=== PATIENT | female | born 1945 | race Caucasian/White ===

== ENCOUNTER 2023-03-31 13:29 | Outpatient (CLI) | payer MEDICARE, SELFPAY ==
--- NOTE | 2023-03-31 14:31 | ECG_ITS ---
Measurements Intervals [place] Rate: 65 P: 41 [place]: 149 QRS: 87 QRSD: 104 T: 74 QT: 420 QTc: 438 Interpretive Statements SINUS RHYTHM BORDERLINE T WAVE ABNORMALITY- ANTERIOR LEADS BASELINE ARTIFACT- I, III, AVR, AVL, AVF, V4-V6 BORDERLINE ECG NO PREVIOUS ECG AVAILABLE FOR COMPARISON Electronically Signed On 03-31-2023 14:47:47 CDT by Elijah Rasheed D.O.
[2023-03-31 14:59] LABS: Basophils Absolute Auto 0.1 K/mm3 (0.0-0.1); Eosinophils Absolute Auto 0.4 K/mm3 (0-0.3); Eosinophils Percent Auto 3.7 % (0-4.4); Hematocrit 39.7 % (37.0-47.0); Hemoglobin 12.6 g/dL (12.0-15.0); Immature Granulocyte Absolute 0.03 K/mm3 (0.00-0.031); Immature Granulocyte Percent A 0.3 % (0-0.5); Lymphocytes Absolute Auto 2.15 K/mm3 (0.9-3.2); Lymphocytes Percent Auto 19.2 % (18.3-44.2); Mean Corpuscular HGB Conc 31.7 g/dl (32-36); Mean Corpuscular Hemoglobin 26.6 pg (26-34); Mean Corpuscular Volume 83.9 fl (80-100); Mean Platelet Volume 10.6 fl (7.4-10.4); Monocytes Absolute Auto 0.9 K/mm3 (0.1-0.6); Neutrophils Absolute Auto 7.6 K/mm3 (1.3-6.7); Neutrophils Percent Auto 67.8 % (45.5-73.1); Platelet Count Result 247 k/mm3 (150-375); Red Blood Count 4.73 M/mm3 (4.2-5.4); Red Cell Distribution Width 16.7 % (11.5-14.5); White Blood Count 11.2 K/mm3 (4.5-10.0)
[2023-03-31 15:08] LABS: Anion Gap 7 mmol/L (8-16); Blood Urea Nitrogen 19 mg/dL (7-17); Calcium 8.9 mg/dL (8.4-10.2); Carbon Dioxide 30 mmol/L (22-30); Chloride 102 mmol/L (98-107); Estimated Glomerular Filt Rate > 60; Glucose 113 mg/dL (65-110); Potassium 3.5 mmol/L (3.4-5.0); Sodium 139 mmol/L (137-145)
== END 2023-03-31 13:30 | disposition home or self-care (01) ==
PROVIDERS: Anesthesiology; PCP Family Medicine; Visit Provider Orthopaedic Surgery
DX: M17.11 Unilateral primary osteoarthritis, right knee (principal); Z01.818 Encounter for other preprocedural examination; I10 Essential (primary) hypertension; Z79.899 Other long term (current) drug therapy; R94.31 Abnormal electrocardiogram [ECG] [EKG]
CPT/HCPCS: 36415; 80048; 85025; 87081; 93005

== ENCOUNTER 2023-04-29 00:28 | Day surgery (SDC) | payer MEDICARE, SELFPAY ==
--- NOTE | 2023-03-31 13:29 | PC.NURSE ---
PRE-OP INSTRUCTIONS, PLEASE READ CAREFULLY Report to the Outpatient Waiting Room, entrance under the green pavilion located off [facility], at time _0600_ on date _04/29/23_. Planned Procedure Time: _0730_. PACK A SMALL OVERNIGHT BAG AND LEAVE IN THE CAR ALONG WITH YOUR WALKER Time changes happen often and if your time is changed the preop area will call you the afternoon before. - You and your visitor will be asked to self-screen and do not enter if you have any COVID symptoms. - A mask is optional within the hospital at this time. -VISITING HOURS 8AM-8PM Patients may have clear liquids (water, carbonated beverages, clear teas, apple juice) until 3 hours prior to surgery (0430 AM) with a maximum of 20 ounces. - No food from midnight until time of surgery Take the following medications with a SIP of water the morning of surgery: _AMLODIPINE, BREZTRI INHALER_ DO NOT STOP ANY OF YOUR OTHER PRESCRIPTION MEDICATIONS PRIOR TO SURGERY ?EXCEPT THE FOLLOWING Medications to discontinue per physician __NONE__, Date to take last dose Please no make-up, nail [place], hairspray, perfume, deodorant, or body powder the day of surgery. No jewelry (including any body piercings) or valuables the day of surgery, leave them at home. Please take a shower or bath the night before, or the morning of, surgery with an antibacterial soap. Wear comfortable, loose fitting clothing. - Jewelry must be removed prior to entering the operating room. Rings and piercings that are not removed may be cut off. - The hospital will not accept responsibility for valuables. - Please leave all valuables, including medications, at home the day of surgery. If you are going home after surgery, a licensed vacuum truck driver must drive you home. - NO public transportation without another adult if you receive anesthesia. - We recommend that an adult stay with you for 24 hours following discharge. - We also recommend that you do not drive, make important decision, drink alcoholic beverages, or take any drugs that were not prescribed by your health care provider for at least 24 hours after your discharge time. Follow any additional instructions given to you from your surgeon. TOTAL JOINT CLASS 04/14/23 @ [address] [place] [address] ENTRANCE #2 If you or anyone in your household have experienced Covid symptoms in the past week, please notify your surgeon or the nurse liaison at the phone number below for possible testing. Instructions given to _PATIENT_and asked if any additional questions and then verbalized understanding. Patient advised to call surgeon office or pre surgery nurse liaison [phone] if any additional questions.
[2023-03-31 14:04] VITALS: BP 130/58; PULSE 76; RESP 18; TEMP 37.1; O2SAT 96; BMI 27.1
--- NOTE | 2023-04-27 14:22 | WPDANESEPPF ---
Anes - Initial Pre Proc Eval Procedure: Operation Date: 04/29/23 07:30 Proposed Procedures p Right Unicompartmental Knee Arthroplasty - Marco Jimenez MD Date/Time: 04/27/23 14:22 Surgeon: Marco Jimenez MD Pre Op Diagnosis: Arthritis Rt Knee Patient Data Age: 77 Gender: F Height: 1.59 m Weight: 69.1 kg Last Vital Signs Temp 98.8 F 03/31/23 14:04 Pulse 76 03/31/23 14:04 Resp 18 03/31/23 14:04 BP 130/58 L 03/31/23 14:04 Pulse Ox 96 03/31/23 14:04 O2 Del Method Room Air 03/31/23 14:04 Allergies Allergy/AdvReac Type Severity Reaction Status Date / Time adhesive tape Allergy Unknown SKIN TEARS Verified 04/23/23 11:35 Home Medications Medication Instructions Recorded Confirmed Type amlodipine 5 mg tablet 5 mg PO DAILY 08/21/22 04/23/23 History cholecalciferol (vitamin D3) 25 25 mcg PO DAILY 08/21/22 04/23/23 History mcg (1,000 unit) capsule hydrochlorothiazide 12.5 mg tablet 12.5 mg PO DAILY 08/21/22 04/23/23 History budesonide 160 mcg-glycopyr 9 2 inh inhalation BID 03/03/23 04/23/23 History mcg-formot 4.8 mcg/actuation HFA inhaler (Breztri Aerosphere) cyanocobalamin (vitamin B-12) 500 mcg PO DAILY 03/03/23 04/23/23 History 1,000 mcg capsule Results Review: All pre-operative results and documents have been reviewed as part of the pre-operative evaluation. [facility] Past Medical History Medical History Abnormal MRI, lumbar spine Anemia B12 deficiency COPD (chronic obstructive pulmonary disease) Emphysema/COPD Herpes zoster without complications Hyperglycemia Hypertension Low back pain with sciatica Lung nodule Renal cyst Renal mass Spinal stenosis Type 2 diabetes mellitus Surgical History Surgical History History of back surgery (~12/2016) History of carpal tunnel release of both wrists History of hysterectomy History of tooth extraction Family History Family History Mother Hypertension Cerebrovascular accident Father Heart attack Seizure Sibling Rheumatoid arthritis Social History Social History Smoking packs per day: 2 Smoking cigarettes per day: 40.0 Years smoked: 60 Smoking pack-years: 120.00 Smoking status: Former smoker Tobacco type: cigarettes Second hand tobacco smoke exposure: No Smoking end date: 05/23/97 Additional smoking assessment comments: PT DENIES ALL FORMS OF TOBACCO USE Alcohol intake: current Drinks per week: 7 Alcohol use details: Socially Substance use: never Substance use type: does not use Lack of Transportation: No Lack of Food: Never True Current Housing: I Have Housing Concerned About Future Housing: No Difficulty Paying Gas/Electric Bills: No Difficulty Paying for Meds: No Education: High School Diploma/GED Difficulty w/ Childcare or Family Care: No Living arrangements: with family Additional living arrangements comments: LIVES WITH SON MACI Spiritual care concerns: No Anes - Eval Final PreProcedure Day of Procedure 04/27/23 14:22 Results Review: All pre-operative results and documents have been reviewed as part of the pre-operative evaluation. Informed Consent: The patient's anesthetic plan and its attendant risks and benefits were discussed with the patient/family/POA. Questions were solicited and answers provided to the satisfaction of the patient/family/POA.
[2023-04-29] VITALS (10 sets, daily range): BP systolic 89–170; BP diastolic 49–67; PULSE 55–76; RESP 10–18; TEMP 36.6–36.7; O2SAT 93–98
--- NOTE | ~2023-04-29 | XR_ITS ---
EXAMINATION: KNEE ONE/TWO VIEW-RIGHT DATE: 04/29/2023 10:03 INDICATION: Postoperative evaluation following right knee medial unicompartmental arthroplasty TECHNIQUE: Anteroposterior and lateral views of the right knee were obtained. COMPARISON: None. FINDINGS: Right knee medial unicompartmental arthroplasty appears well seated and in near anatomic alignment. No fractures identified. Expected postoperative subcutaneous and intra-articular gas. IMPRESSION: 1. Right knee medial unicompartmental arthroplasty, negative for postoperative purposes. Reviewed, dictated and finalized at location A.
[2023-04-29] MEDS: ACETAMINOPHEN 500 MG TABLET 1000 MG PO (06:45)
[2023-04-29] MEDS: LACTATED RINGERS 1,000 ML 30 ML IV CONT ×2 (06:55→09:40)
[2023-04-29] MEDS: TRANEXAMIC ACID 1,000MG/ISO100 1,000 MG/100 ML BAG 200 MG IVPB (07:00)
[2023-04-29 07:16] LABS: Glucose Point of Care 108 mg/dl (65-105)
--- NOTE | 2023-04-29 07:18 | WPDANESEPPF ---
Anes - Initial Pre Proc Eval Procedure: Operation Date: 04/29/23 07:30 Proposed Procedures p Right Unicompartmental Knee Arthroplasty - Marco Jimenez MD Date/Time: 04/29/23 07:18 Surgeon: Marco Jimenez MD Pre Op Diagnosis: Arthritis Rt Knee Patient Data Age: 77 Gender: F Height: 1.59 m Weight: 68 kg Last Vital Signs Temp 36.6 C 04/29/23 07:06 Pulse 76 04/29/23 07:06 Resp 16 04/29/23 07:06 BP 170/59 H 04/29/23 07:06 Pulse Ox 98 04/29/23 07:06 O2 Del Method Room Air 04/29/23 07:06 Allergies Allergy/AdvReac Type Severity Reaction Status Date / Time adhesive tape Allergy Unknown SKIN TEARS Verified 04/29/23 06:27 Home Medications Medication Instructions Recorded Confirmed Type amlodipine 5 mg tablet 5 mg PO DAILY 08/21/22 04/29/23 History cholecalciferol (vitamin D3) 25 25 mcg PO DAILY 08/21/22 04/29/23 History mcg (1,000 unit) capsule budesonide 160 mcg-glycopyr 9 2 inh inhalation BID 03/03/23 04/29/23 History mcg-formot 4.8 mcg/actuation HFA inhaler (Breztri Aerosphere) cyanocobalamin (vitamin B-12) 500 mcg PO DAILY 03/03/23 04/29/23 History 1,000 mcg capsule Laboratory Tests 04/29/23 07:14 POC Capillary Glucose 108 H mg/dl (65-105) Patient hx anesthesia problems: none Family hx anesthesia problems: none Results Review: All pre-operative results and documents have been reviewed as part of the pre-operative evaluation. [facility] Past Medical History Medical History Abnormal MRI, lumbar spine Anemia B12 deficiency COPD (chronic obstructive pulmonary disease) Emphysema/COPD Herpes zoster without complications Hyperglycemia Hypertension Low back pain with sciatica Lung nodule Renal cyst Renal mass Spinal stenosis Type 2 diabetes mellitus Surgical History Surgical History History of back surgery (~12/2016) History of carpal tunnel release of both wrists History of hysterectomy History of tooth extraction Family History Family History Mother Hypertension Cerebrovascular accident Father Heart attack Seizure Sibling Rheumatoid arthritis Social History Social History Smoking packs per day: 2 Smoking cigarettes per day: 40.0 Years smoked: 60 Smoking pack-years: 120.00 Smoking status: Former smoker Tobacco type: cigarettes Second hand tobacco smoke exposure: No Smoking end date: 05/23/97 Additional smoking assessment comments: PT DENIES ALL FORMS OF TOBACCO USE Alcohol intake: current Drinks per week: 7 Alcohol use details: Socially Substance use: never Substance use type: does not use Lack of Transportation: No Lack of Food: Never True Current Housing: I Have Housing Concerned About Future Housing: No Difficulty Paying Gas/Electric Bills: No Difficulty Paying for Meds: No Education: High School Diploma/GED Difficulty w/ Childcare or Family Care: No Living arrangements: with family Additional living arrangements comments: LIVES WITH SON MCAI Spiritual care concerns: No Anes - Eval Final PreProcedure Day of Procedure 04/29/23 07:18 Patient weight: overweight Heart: regular rate and rhythm Lungs: wheezes Airway: Mallampati scale class II Neurological: alert and oriented Last oral intake: >/= 8 hours ASA classification: III Emergent: no Anesthetic plan: proceed Anesthesia type and monitoring: general LMA and standard monitoring Results Review: All pre-operative results and documents have been reviewed as part of the pre-operative evaluation. Informed Consent: The patient's anesthetic plan and its attendant risks and benefits were discussed with the patient/family/POA. Questions were solicited and answers provided to the satisfaction of the
--- NOTE | 2023-04-29 07:22 | WPDHPUPDATE1 ---
History and Physical Update Update Date/Time: 04/29/23 07:22 History and Physical has been reviewed, including an updated exam of the patient. There are NO changes in the patient's condition. Risks, benefits, and alternatives have been discussed and questions answered. Patient agrees to proceed with procedure.
[2023-04-29] MEDS: ceFAZolin 2 GM/D5W 50 ML 2 GM/50 ML BAG IVPB (07:32)
--- NOTE | 2023-04-29 07:41 | WPDANESPNB ---
Anes - Peripheral Nerve Block Date/Time: 04/29/23 07:41 I have discussed with the patient/family/POA the placement of a peripheral nerve block for post-operative pain management, including associated risks, benefits, complications, and side effects. Alternative methods of post-operative analgesia were detailed. Questions were solicited and answers provided to the satisfaction of the patient/family/POA. Time-Out: A pre-procedural Time-Out was completed immediately before starting the procedure and confirmed: Patient Identification, Site, Procedure, Patient Position and the Availability of Requisite Equipment. Clinical Indications: Acute post-operative pain management requested by the operative surgeon. Nerve Block Insertion Note Anes-nerve block: femoral left Patient position: supine Skin prep: chlorhexidine Needle: 22 gauge, stimulating, insulated echogenic needle. Needle length: 50 mm Technique: nerve stimulation lost at (mA) (0.35) Injectate: bupivacaine 0.5% with epi 5 mcg/ml (20cc no epi) Observations: tolerated well Complications: none Procedure start time:: 724 Procedure end time:: 728
[2023-04-29] MEDS: GENTAMICIN BONE CEMENT REFOBACIN 1 EACH TOPICAL (08:44)
--- NOTE | 2023-04-29 09:27 | W.PM.PROC2 ---
Procedure Note - Detailed Date of Procedure 04/29/23 Pre-op Diagnosis Degenerative arthritis left knee. Post-op Diagnosis Same Procedure Performed Partial knee arthroplasty, left knee, medial compartment. Surgeon Marco Jimenez MD Anesthesia General Findings Good bone quality. Minus two femoral resection. Description of Procedure The patient was given a general anesthetic. Preoperative antibiotics were given. The knee was prepped and draped in the usual sterile fashion. A longitudinal incision was created along the medial aspect of the patellar tendon. A minimally invasive optimized mid vastus approach was completed. No medial release was taken. The external alignment guide was used to cut the tibia with anatomic posterior slope. A 4 millimeter resection was taken. The spacer block technique was utilized to measure flexion and extension gaps after the osteophytes were removed. The difference was used to calculate the distal resection. The distal cutting block was utilized to cut the distal femur. The AP and chamfer block was utilized for this last cuts. The femur and tibia were sized. Range of motion and gap balancing was assessed. This was tested with the 1.5 millimeter spacer. The bony surfaces were cleaned with lavaged. Lug holes were drilled. The real components were cemented into position. Excess cement was carefully removed. The tourniquet was released. Meticulous hemostasis was maintained. The wound was closed with interrupted 1 Vicryl suture followed by a running 0 Quill suture and 2-0 Quill suture. Steri-Strips are placed in the skin the patient was extubated and brought to recovery room in stable condition. There were no complications. Implants Localize Direct PKR system femur size 2, tibia size 3, 8mm polyethylene insert . One batch Simplex antibiotic cement. Estimated Blood Loss 20 Drains No Complications No immediate complications Condition Stable Disposition PACU [facility] Billing Surgery - Charge Forward: Surgery Billing
[2023-04-29 10:06] LABS: Glucose Point of Care 153 mg/dl (65-105)
--- NOTE | 2023-04-29 10:12 | SUR.PHASEI ---
Spoke with Dr. Jimenez regarding patient's need for therapy before discharge. Dr. Jimenez will enter therapy orders for patient.
[2023-04-29] MEDS: IBUPROFEN 600 MG TABLET PO (11:24)
--- NOTE | 2023-04-29 11:58 | SUR.PHASEII ---
PT HERE TO WORK WITH PATIENT.
--- NOTE | 2023-04-29 14:01 | SUR.PHASEII ---
[facility] [facility] PHYSICAL THERAPIST CALLED TO REPORT PATIENT'S LEFT KNEE BUCKLED; DR. BROWN NOTIFIED WHO ORDERED A KNEE IMMOBLIZER WHICH WAS PLACED ON LEFT KNEE.
== END 2023-04-29 13:30 | disposition home or self-care (01) ==
PROVIDERS: PCP Family Medicine; Visit Provider Orthopaedic Surgery
PROC: (CPT 27446; principal; 2023-04-29 07:30)
DX: M17.12 Unilateral primary osteoarthritis, left knee (principal); G89.18 Other acute postprocedural pain; I10 Essential (primary) hypertension; E11.9 Type 2 diabetes mellitus without complications; J43.9 Emphysema, unspecified; E53.8 Deficiency of other specified B group vitamins; Z87.891 Personal history of nicotine dependence
CPT/HCPCS: 27446; 64447; 36415; 73560; 80048; 82948; 85025; 87081; 93005; 97110; 97161; 97165; 97530; A9270; C1713; C1776; J0171; J0690; J1100; J1170; J1885; J2270; J2405; J2704; J2795; J7120

== ENCOUNTER 2023-06-17 14:29 | Outpatient (CLI) | payer MEDICARE, SELFPAY ==
--- NOTE | ~2023-06-17 | XR_ITS ---
EXAM: XR knee LT 3V DATE: 06/17/2023 14:44 HISTORY: Z96.652 - Presence of left artificial knee joint, F/U . COMPARISON: 03/03/2023, images only. FINDINGS: Uncomplicated appearing medial compartment hemiarthroplasty. Decreased mineralization. No fracture or dislocation. No lytic or blastic lesion. Mild degenerative change in the patellofemoral a nd lateral compartments. Quadriceps enthesopathy. Large volume joint fluid. No erosion or periosteal change. Soft tissues within normal limits. IMPRESSION: No acute osseous finding. No radiographic evidence of hardware-related complication. Larg e joint effusion. Reviewed, dictated and finalized at location K. IMPRESSION: No acute osseous finding. No radiographic evidence of hardware-rela karlee complication. Large joint effusion.
== END 2023-06-17 14:30 | disposition home or self-care (01) ==
PROVIDERS: PCP Family Medicine; Visit Provider Orthopaedic Surgery
DX: Z96.652 Presence of left artificial knee joint (principal); M25.462 Effusion, left knee
CPT/HCPCS: 73562

== ENCOUNTER 2023-07-06 12:20 | Outpatient (CLI) | payer MEDICARE, SELFPAY ==
[2023-07-06 13:05] LABS: Basophils Absolute Auto 0.1 K/mm3 (0.0-0.1); Basophils Percent Auto 0.9 % (0.2-1.2); Eosinophils Absolute Auto 0.6 K/mm3 (0-0.3); Eosinophils Percent Auto 6.2 % (0-4.4); Hematocrit 40.1 % (37.0-47.0); Hemoglobin 12.7 g/dL (12.0-15.0); Immature Granulocyte Absolute 0.02 K/mm3 (0.00-0.031); Immature Granulocyte Percent A 0.2 % (0-0.5); Lymphocytes Absolute Auto 1.88 K/mm3 (0.9-3.2); Lymphocytes Percent Auto 19.8 % (18.3-44.2); Mean Corpuscular HGB Conc 31.7 g/dl (32-36); Mean Corpuscular Hemoglobin 27.4 pg (26-34); Mean Corpuscular Volume 86.6 fl (80-100); Mean Platelet Volume 10.4 fl (7.4-10.4); Monocytes Percent Auto 10.1 % (2.6-8.5); Neutrophils Percent Auto 62.8 % (45.5-73.1); Platelet Count Result 248 k/mm3 (150-375); Red Blood Count 4.63 M/mm3 (4.2-5.4); Red Cell Distribution Width 14.7 % (11.5-14.5); White Blood Count 9.5 K/mm3 (4.5-10.0)
== END 2023-07-06 12:21 | disposition home or self-care (01) ==
LOC: ANHSURGERY 12:24
PROVIDERS: PCP Family Medicine; Visit Provider Orthopaedic Surgery
DX: Z01.818 Encounter for other preprocedural examination (principal); M17.11 Unilateral primary osteoarthritis, right knee
CPT/HCPCS: 36415; 85025

== ENCOUNTER 2023-07-09 03:43 | Day surgery (SDC) | payer MEDICARE, SELFPAY ==
[2023-07-01 10:05] VITALS: BMI 27.3
--- NOTE | 2023-07-01 10:26 | PC.NURSE ---
Addendum entered by Radha Tolentino RN 07/05/23 10:50: PT CALLED TO UPDATE MED LIST, MED LIST UPDATED AND PT INFORMED TO TAKE AMLODIPINE AM OF SURGERY - UNDERSTANDING VOICED Original Note: Report to the Outpatient Waiting Room, entrance under the green pavilion located off [facility], at time __10:00AM on date __07/09/23 . Planned Procedure Time: _12:00PM . Time changes happen often and if your time is changed the preop area will call you the afternoon before. - You and your visitor will be asked to self-screen and do not enter if you have any COVID symptoms. - A mask is optional within the hospital at this time. Patients may have clear liquids (water, carbonated beverages, clear teas, apple juice) until 3 hours prior to surgery with a maximum of 20 ounces. - No food from midnight until time of surgery Take the following medications with a SIP of water the morning of surgery: _ADVAIR DISKUS, ALBUTEROL INHALER NEEDED DO NOT STOP ANY OF YOUR OTHER PRESCRIPTION MEDICATIONS PRIOR TO SURGERY ?EXCEPT THE FOLLOWING Medications to discontinue per physician ___HOLD ALL VITAMINS/SUPPLEMENTS 3 DAYS PRE-OP PER ANESTHESIA Date to take last dose 07/05/23 Please no make-up, nail afghan, hairspray, perfume, deodorant, or body powder the day of surgery. No jewelry (including any body piercings) or valuables the day of surgery, leave them at home. Please take a shower or bath the night before, or the morning of, surgery with an antibacterial soap. Wear comfortable, loose fitting clothing. - Jewelry must be removed prior to entering the operating room. Rings and piercings that are not removed may be cut off. - The hospital will not accept responsibility for valuables. - Please leave all valuables, including medications, at home the day of surgery. If you are going home after surgery, a licensed corporate driver must drive you home. - NO public transportation without another adult if you receive anesthesia. - We recommend that an adult stay with you for 24 hours following discharge. - We also recommend that you do not drive, make important decision, drink alcoholic beverages, or take any drugs that were not prescribed by your health care provider for at least 24 hours after your discharge time. Follow any additional instructions given to you from your surgeon. If you or anyone in your household have experienced Covid symptoms in the past week, please notify your surgeon or the nurse liaison at the phone number below for possible testing. Telephone instructions given to _PATIENT and asked if any additional questions and then verbalized understanding. Patient advised to call surgeon office or pre surgery nurse liaison [phone] if any additional questions.
[2023-07-09] VITALS (9 sets, daily range): BP systolic 109–150; BP diastolic 46–63; PULSE 62–77; RESP 10–16; TEMP 36.5–36.6; O2SAT 92–100
--- NOTE | ~2023-07-09 | XR_ITS ---
EXAMINATION: KNEE ONE/TWO VIEW-RIGHT DATE: 07/09/2023 14:23 INDICATION: Right knee knee medial unicompartmental arthroplasty TECHNIQUE: Anteroposterior, oblique and lateral views of the right knee were obtained. COMPARISON: 04/29/2023 FINDINGS: Again seen is a cemented right knee medial unicompartmental arthroplasty remains well seated in near anatomic alignment. No fractures identified. Small amount of likely postoperative gas in the soft ti ssues along the anterior and medial sides of the knee. No knee joint effusion.. IMPRESSION: 1. Expected appearance of a right knee medial unicompartmental arthroplasty with small amount of like ly postoperative surrounding soft tissue gas. No acute osseous abnormality. Reviewed, dictated and finalized at location A. IMPRESSION: 1. Expected appearance of a right knee medial unicompartmental arthroplasty wit h small amount of likely postoperative surrounding soft tissue gas. No acute os seous abnormality.
[2023-07-09] MEDS: ACETAMINOPHEN 500 MG TABLET 1000 MG PO (10:13)
[2023-07-09] MEDS: LACTATED RINGERS 1,000 ML 30 ML IV CONT (10:25)
--- NOTE | 2023-07-09 10:30 | WPDANESEPPF ---
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 Patient Data Age: 78 Gender: F Height: 1.6 m Weight: 67.8 kg Last Vital Signs Temp 36.6 C 07/09/23 10:18 Pulse 72 07/09/23 10:18 Resp 16 07/09/23 10:18 BP 150/63 H 07/09/23 10:18 Pulse Ox 100 07/09/23 10:18 O2 Del Method Room Air 07/09/23 10:18 Allergies Allergy/AdvReac Type Severity Reaction Status Date / Time adhesive tape AdvReac Unknown SKIN TEARS Verified 07/09/23 10:11 Home Medications Medication Instructions Recorded Confirmed Type cholecalciferol (vitamin D3) 25 25 mcg PO DAILY 08/21/22 07/06/23 History mcg (1,000 unit) capsule cyanocobalamin (vitamin B-12) 500 mcg PO DAILY 03/03/23 07/06/23 History 1,000 mcg capsule fluticasone 250 mcg-salmeterol 50 1 inh inhalation BID 05/19/23 07/06/23 History mcg/dose blistr powdr for inhalation (Advair Diskus) albuterol (refill) 90 90 mcg inhalation Q4-5H PRN 07/01/23 07/06/23 History mcg/actuation aerosol inhaler Shortness Of Breath Or Wheezing amlodipine 5 mg tablet 5 mg BID 07/05/23 07/06/23 History Patient hx anesthesia problems: none Family hx anesthesia problems: none Results Review: All pre-operative results and documents have been reviewed as part of the pre-operative evaluation. [facility] Past Medical History Medical History Abnormal MRI, lumbar spine Anemia B12 deficiency COPD (chronic obstructive pulmonary disease) Emphysema/COPD Herpes zoster without complications Hyperglycemia Hypertension Low back pain with sciatica Lung nodule Renal cyst Renal mass Spinal stenosis Type 2 diabetes mellitus Surgical History Surgical History History of back surgery (~12/2016) History of carpal tunnel release of both wrists History of hysterectomy History of tooth extraction Status post left partial knee replacement Family History Family History Mother Hypertension Cerebrovascular accident Father Heart attack Seizure Sibling Rheumatoid arthritis Social History Social History Smoking packs per day: 1.5 Smoking cigarettes per day: 30.0 Years smoked: 33 Smoking pack-years: 49.50 Smoking status: Former smoker Tobacco type: cigarettes Second hand tobacco smoke exposure: No Smoking end date: 05/08/95 Additional smoking assessment comments: PT DENIES ALL FORMS OF TOBACCO USE Alcohol intake: current Drinks per week: 7 Alcohol use details: Socially Substance use: never Substance use type: does not use Lack of Transportation: No Lack of Food: Never True Current Housing: I Have Housing Concerned About Future Housing: No Difficulty Paying Gas/Electric Bills: No Difficulty Paying for Meds: No Education: High School Diploma/GED Difficulty w/ Childcare or Family Care: No Living arrangements: with family Additional living arrangements comments: [place] Gender identity (if verbalized by the patient): Female Sexual Orientation (if Verbalized by the Patient): Straight or Heterosexual Spiritual care concerns: No Anes - Eval Final PreProcedure Day of Procedure 07/09/23 10:30 Patient weight: overweight Heart: regular rate and rhythm Lungs: clear to auscultation Airway: Mallampati scale class II Neurological: alert and oriented Last oral intake: >/= 8 hours ASA classification: III Emergent: no Anesthetic plan: proceed Anesthesia type and monitoring: general LMA and standard monitoring Results Review: All pre-operative results and documents have been reviewed as part of
[2023-07-09] MEDS: TRANEXAMIC ACID 1,000MG/ISO100 1,000 MG/100 ML BAG 200 MG IVPB (11:32)
[2023-07-09] MEDS: ceFAZolin 2 GM/D5W 50 ML 2 GM/50 ML BAG IVPB (12:16)
--- NOTE | 2023-07-09 12:18 | WPDHPUPDATE1 ---
History and Physical Update Update Date/Time: 07/09/23 12:18 History and Physical has been reviewed, including an updated exam of the patient. There are NO changes in the patient's condition. Risks, benefits, and alternatives have been discussed and questions answered. Patient agrees to proceed with procedure.
--- NOTE | 2023-07-09 12:19 | WPDANESPNB ---
Anes - Peripheral Nerve Block Date/Time: 07/09/23 12:19 I have discussed with the patient/family/POA the placement of a peripheral nerve block for post-operative pain management, including associated risks, benefits, complications, and side effects. Alternative methods of post-operative analgesia were detailed. Questions were solicited and answers provided to the satisfaction of the patient/family/POA. Time-Out: A pre-procedural Time-Out was completed immediately before starting the procedure and confirmed: Patient Identification, Site, Procedure, Patient Position and the Availability of Requisite Equipment. Clinical Indications: Acute post-operative pain management requested by the operative surgeon. Nerve Block Insertion Note Anes-nerve block: adductor canal right Patient position: supine Skin prep: chlorhexidine Needle: 22 gauge, stimulating, insulated echogenic needle. Needle length: 80 mm Technique: ultrasound Injectate: bupivacaine 0.5% with epi 5 mcg/ml (30cc - no epi) Observations: tolerated well Complications: none Procedure start time:: 1210 Procedure end time:: 121
--- NOTE | 2023-07-09 14:41 | P.OP_ITS ---
Procedure Note - Detailed Date of Procedure 07/09/23 Pre-op Diagnosis primary oa right knee Post-op Diagnosis Same Procedure Performed Partial knee arthroplasty, right knee, medial compartment. Surgeon Marco Jimenez MD Senior Portfolio Manager Cristiana Estrada PA-C Anesthesia General Description of Procedure Physician assistant news director, Cristiana Estrada PA-C, required for surgery; including patient positioning, draping, tissue retraction, maintaining instrument position, cement removal, wound closure, and dressing placement. The patient was given a general anesthetic. Preoperative antibiotics were given. The knee was prepped and draped in the usual sterile fashion. A longitudinal incision was created along the medial aspect of the patellar tendon. A minimally invasive optimized mid vastus approach was completed. No medial release was taken. The external alignment guide was used to cut the tibia with anatomic posterior slope. A 4 millimeter resection was taken. The spacer block technique was utilized to measure flexion and extension gaps after the osteophytes were removed. The difference was used to calculate the distal resection. The distal cutting block was utilized to cut the distal femur. The AP and chamfer block was utilized for this last cuts. The femur and tibia were sized. Range of motion and gap balancing was assessed. This was tested with the 1.5 millimeter spacer. The bony surfaces were cleaned with lavaged. Lug holes were drilled. The real components were cemented into position. Excess cement was carefully removed. The tourniquet was released. Meticulous hemostasis was maintained. The wound was closed with interrupted 1 Vicryl suture followed by a running 0 Quill suture and 2-0 Quill suture. Steri-Strips are placed in the skin the patient was extubated and brought to recovery room in stable condition. There were no complications. Implants [employer] system femur size 2, tibia size 2, 8mm polyethylene insert . One batch Simplex antibiotic cement. Estimated Blood Loss 20 Drains No Complications No immediate complications Condition Stable Disposition PACU [facility] Billing Surgery - Charge Forward: Surgery Billing
== END 2023-07-09 16:34 | disposition home or self-care (01) ==
PROVIDERS: PCP Family Medicine; Visit Provider Orthopaedic Surgery
PROC: (CPT 27446; principal; 2023-07-09 12:00)
DX: M17.11 Unilateral primary osteoarthritis, right knee (principal); G89.18 Other acute postprocedural pain; I10 Essential (primary) hypertension; J43.9 Emphysema, unspecified; E11.9 Type 2 diabetes mellitus without complications; E53.8 Deficiency of other specified B group vitamins; Z79.51 Long term (current) use of inhaled steroids; Z87.891 Personal history of nicotine dependence
CPT/HCPCS: 27446; 64447; 36415; 73560; 85025; 97110; 97161; A9270; C1713; C1776; J0171; J0690; J1100; J1170; J1885; J2270; J2405; J2704; J2795; J3010; J7120